=== PATIENT | male | born 1985 | race Caucasian/White ===

== ENCOUNTER 2017-02-12 15:47 | Emergency (ER) | payer BC, OTHER ==
[2017-02-12 15:52] VITALS: TEMP 97.9; BMI 34.2
--- NOTE | 2017-02-12 16:14 | PDOC ---
History of Present Illness <Lino Delgado - Last Filed: 02/12/17 18:34> - History of Present Illness Initial Comments: 02/12/17 18:40 Patient is a 31 year old male with no significant medical hx who is presenting to the ED with testicular pain since last night. the patient complains of right testicular pain that started last night and began getting worse at 8 PM. The patient denies any discharge, fever, hematuria, dysuria, or changes in urination. <Minnie Irwin - Last Filed: 02/12/17 18:50> - General Chief Complaint: Pain, Acute Stated Complaint: GENITAL PAIN Time Seen by Provider: 02/12/17 16:13 Past History - Past Medical History Other medical history: PATIENT DENIES MEDICAL HISTORY - Psycho/Social/Smoking Cessation Hx Suicidal Ideation: No Smoking History: Never smoked Hx Alcohol Use: Yes Drug/Substance Use Hx: No <Lino Delgado - Last Filed: 02/12/17 18:34> <Minnie Irwin - Last Filed: 02/12/17 18:50> - Past Medical History Allergies/Adverse Reactions: Allergies Allergy/AdvReac Type Severity Reaction Status Date / Time No Known Allergies Allergy Verified 02/12/17 15:52 Home Medications: Ambulatory Orders Doxycycline Monohydrate [Monodox] 100 mg PO Q12H #14 capsule 02/12/17 Ibuprofen 800 mg PO TID #14 tablet 02/12/17 Ondansetron [Zofran *Odt*] 8 mg SL TID #30 od.tablet 02/12/17 Oxycodone HCl/Acetaminophen [Percocet 5-325 mg Tablet] 1 tab PO Q6H #20 tablet MDD 6 02/12/17 Review of Systems - Review of Systems Comments:: 02/12/17 18:43 GENERAL/CONSTITUTIONAL: No fever or chills. No weakness. HEAD, EYES, EARS, NOSE AND THROAT: No change in vision. No ear pain or discharge. No sore throat. CARDIOVASCULAR: No chest pain or shortness of breath. RESPIRATORY: No cough, wheezing, or hemoptysis. GASTROINTESTINAL: No nausea, vomiting, diarrhea or constipation. GENITOURINARY: Right testicular pain. No dysuria, frequency, or change in urination. MUSCULOSKELETAL: No joint or muscle swelling or pain. No neck or back pain. SKIN: No rash NEUROLOGIC: No headache, vertigo, loss of consciousness, or change in strength/ sensation. <Minnie Irwin - Last Filed: 02/12/17 18:50> *Physical Exam - Vital Signs Last Vital Signs Temp Pulse Resp BP Pulse Ox 97.9 F 77 18 129/69 98 02/12/17 15:49 02/12/17 15:49 02/12/17 15:49 02/12/17 15:49 02/12/17 15:49 <Lino Delgado - Last Filed: 02/12/17 18:34> - Vital Signs Last Vital Signs Temp Pulse Resp BP Pulse Ox 97.9 F 77 18 129/69 98 02/12/17 15:49 02/12/17 15:49 02/12/17 15:49 02/12/17 15:49 02/12/17 15:49 - Physical Exam Comments: 02/12/17 18:44 GENERAL: Awake, alert, and fully oriented, in no acute distress HEAD: No signs of trauma EYES: PERRLA, EOMI, sclera anicteric, conjunctiva clear ENT: Auricles normal inspection, hearing grossly normal, nares patent, oropharynx clear without exudates. Moist mucosa NECK: Normal ROM, supple, no lymphadenopathy, JVD, or masses LUNGS: Breath sounds equal, clear to auscultation bilaterally. No wheezes, and no crackles HEART: Regular rate and rhythm, normal S1 and S2, no murmurs, rubs or gallops ABDOMEN: Soft, nontender, normoactive bowel sounds. No guarding, no rebound. No masses EXTREMITIES: Normal range of motion, no edema. No clubbing or cyanosis. No cords, erythema, or tenderness NEUROLOGICAL: Cranial nerves II through XII grossly intact. Normal speech, normal gait SKIN: Warm, Dry, normal turgor, no rashes or lesions noted. ENDOCRINE: No increased thirst. No abnormal weight change. HEMATOLOGIC/LYMPHATIC: No anemia, easy bleeding, or history of blood clots. ALLERGIC/IMMUNOLOGIC: No hives or skin allergy. GENITAL: Tender epididymis to the right. <Minnie Irwin - Last Filed: 02/12/17 18:50> ED Treatment Course - ADDITIONAL ORDERS Additional order review: Laboratory Results 02/12/17 17:04 Urine Color Yellow Urine Appearance Clear Urine pH 5.0 Urine Protein Negative Urine Glucose (UA) Negative Urine Ketones Negative Urine Blood Negative Urine Nitrite Negative Urine Bilirubin Negative Urine Urobilinogen Negative Ur Leukocyte Esterase Negative - RADIOLOGY Radiograph Interpretation: 02/12/17 18:45 Scrotal US Impression: Prominent right epididymal head. Small right hydrocele. Small left varicocele. Both testicles appear unremarkable with normal echotexture as well as normal and symmetric vascular flow. Reported By: Vera Sifuentes MD - Medications Given in the ED: ED Medications Discontinued Medications Generic Name Dose Route Start Last Admin Trade Name Rashi PRN Reason Stop Dose Admin Azithromycin 1 gm 02/12/17 18:27 02/12/17 18:37 Zithromax - PO 02/12/17 18:28 1 gm ONCE ONE Administration Ceftriaxone Sodium 250 mg 02/12/17 18:27 02/12/17 18:37 Rocephin - IM 02/12/17 18:28 250 mg ONCE ONE Administration Ibuprofen 800 mg 02/12/17 16:38 02/12/17 16:54 Motrin - PO 02/12/17 16:39 800 mg ONCE ONE Administration Ondansetron HCl 8 mg 02/12/17 16:38 02/12/17 16:54 Zofran - PO 02/12/17 16:39 Not Given ONCE ONE <Minnie Irwin - Last Filed: 02/12/17 18:50> *DC/Admit/Observation/Transfer - Attestations Physician Attestion: 02/12/17 16:14 I, Dr. Lino Delgado, attest that this document has been prepared under my direction and personally reviewed by me in its entirety. I further attest, that it accurately reflects all work, treatment, procedures and medical decision -making performed by me. <Lino Delgado - Last Filed: 02/12/17 18:34> - Attestations Scribe Attestion: 02/12/17 18:47 US shows epididymitis. Will treat with abx and have him follow up with doctor in one week. <Minnie Irwin - Last Filed: 02/12/17 18:50> Diagnosis at time of Disposition: Acute epididymitis - Discharge Dispostion Disposition: HOME Condition at time of disposition: Good - Prescriptions Prescriptions: Ibuprofen 800 mg PO TID #14 tablet Doxycycline Monohydrate [Monodox] 100 mg PO Q12H #14 capsule Oxycodone HCl/Acetaminophen [Percocet 5-325 mg Tablet] 1 tab PO Q6H #20 tablet MDD 6 Ondansetron [Zofran *Odt*] 8 mg SL TID #30 od.tablet - Patient Instructions Printed Discharge Instructions: DI for Epididymitis Additional Instructions: [place] Wearing an athletic supporter should relieve some of the pain. You should feel a little bit better each day and you should be back to normal in a week. Tarun- Dr. Lino Delgado
[2017-02-12] MEDS ORDERED: OXYCODONE/APAP 5/325MG COMBO TABLET PO PRN (16:38)
[2017-02-12] MEDS ORDERED: IBUPROFEN 400 MG TABLET (FP) PO ONE ×2 (16:38→16:48)
[2017-02-12] MEDS ORDERED: ONDANSETRON 8 MG TABLET (FP) PO ONE ×2 (16:38→16:48)
[2017-02-12 17:48] LABS: URINE APPEARANCE CLEAR; URINE BILIRUBIN NEGATIVE (NEGATIVE); URINE BLOOD NEGATIVE (NEGATIVE); URINE COLOR YELLOW; URINE GLUCOSE (UA) NEGATIVE (NEGATIVE); URINE KETONE NEGATIVE (NEGATIVE); URINE LEUK ESTERASE NEGATIVE (NEGATIVE); URINE NITRITE NEGATIVE (NEGATIVE); URINE PROTEIN NEGATIVE (NEGATIVE); URINE UROBILINOGEN NEGATIVE E.U./dl (0.2-1.0)
[2017-02-12] MEDS ORDERED: AZITHROMYCIN 1 GM PACKET PO ONE (18:27)
[2017-02-12] MEDS ORDERED: LIDOCAINE HCL/PF 1% SDV 5ML VIAL ONE (18:31)
[2017-02-12] MEDS ORDERED: cefTRIAXone SODIUM 1 GM VIAL ONE ×2 (18:31)
[2017-02-12] MEDS ORDERED: AZITHROMYCIN 1 GM PACKET ONE (18:33)
[2017-02-12 18:43] VITALS: BP 118/78; PULSE 90
== END 2017-02-12 18:43 | disposition home or self-care (01) ==
LOC: JER 15:47
DX: N45.1 Epididymitis (principal)
CPT/HCPCS: 36415; 76870-TC; 81003; 87491; 87591; 99283-25

== ENCOUNTER 2018-08-28 12:27 | Emergency (ER) | payer OTHER, BC ==
[2018-08-28 12:44] VITALS: BP 124/77; PULSE 80; TEMP 98.8; BMI 32.2
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
[2018-08-28] MEDS ORDERED: KETOROLAC TROMETHAMINE 60 MG/2 ML VIAL IM ONE (13:45)
[2018-08-28] MEDS ORDERED: KETOROLAC TROMETHAMINE 60 MG/2 ML VIAL ONE (13:51)
== END 2018-08-28 14:07 | disposition home or self-care (01) ==
LOC: JERFT 12:27
PROC: 3E0233Z Introduction of Anti-inflammatory into Muscle, Percutaneous Approach (ICD-10-PCS; principal; 2018-08-28)
DX: S13.4XXA Sprain of ligaments of cervical spine, initial encounter (principal); V49.49XA Driver injured in collision with other motor vehicles in traffic accident, initial encounter; Y92.488 Other paved roadways as the place of occurrence of the external cause; Y93.89 Activity, other specified; Y99.8 Other external cause status
CPT/HCPCS: 99281-25